=== PATIENT | male | born 1955 | race Two or more races ===

== ENCOUNTER 2017-03-12 20:07 | Emergency (ER) | payer MEDICARE ==
[~2017-03-12] VITALS: Ht 177.8 cm; Wt 63.5 kg
[2017-03-12 20:15] VITALS: BP 110/78
[2017-03-12] MEDS: Ketorolac 30mg Inj IM ONE ×2 (20:55→20:58)
[2017-03-12 22:05] VITALS: BP 115/88
[2017-03-12 23:15] VITALS: BP 105/72
[2017-03-13 01:30] VITALS: BP 120/78
--- NOTE | 2017-03-13 14:22 | Emergency Room Report ---
History of Present Illness General Chief Complaint: Pain Source: Patient Present Illness HPI 61-year-old male presents ED complaining of leg pain. Was found by EMS at grocery store parking lot. Patient states he has throbbing pain to both legs. 12/31, nonradiating. Able to ambulate. Denies any trauma. States his legs are hurting because he is homeless and is walking a lot. Denies any alcohol or drug use. Denies chest pain or shortness of breath. No other aggravating or leading factors. Denies any other associated symptoms Allergies: Coded Allergies: No Known Allergies (Unverified , 03/12/17) Patient History Past Medical History: psych hx Past Surgical History: none Pertinent Family History: none Social History: Denies: smoking, alcohol use, drug use Immunizations: UTD Reviewed Nursing Documentation: PMH: Agreed, PSxH: Agreed Nursing Documentation-PMH History Of Psychiatric Problem: Yes - Bipolar, schizophrenia Review of Systems All Other Systems: negative except mentioned in HPI Physical Exam Vital Signs Date Time Temp Pulse Resp B/P (MAP) Pulse Ox O2 Delivery O2 Flow Rate FiO2 03/12/17 20:04 98.2 69 16 111/74 97 Room Air Sp02 EP Interpretation: reviewed, normal General Appearance: no apparent distress, alert, GCS 15, non-toxic Head: normocephalic, atraumatic Eyes: bilateral eye normal inspection, bilateral eye PERRL ENT: hearing grossly normal, normal pharynx, no angioedema, normal voice Neck: full range of motion, supple/symm/no masses Respiratory: chest non-tender, lungs clear, normal breath sounds, speaking full sentences Cardiovascular #1: regular rate, rhythm, no edema Cardiovascular #2: 2+ carotid (R), 2+ carotid (L), 2+ radial (R), 2+ radial (L) , 2+ dorsalis pedis (R), 2+ dorsalis pedis (L) Gastrointestinal: normal bowel sounds, non tender, soft, non-distended, no guarding, no rebound Rectal: deferred Genitourinary: normal inspection, no CVA tenderness Musculoskeletal: back normal, gait/station normal, normal range of motion, non- tender Neurologic: alert, oriented x3, responsive, motor strength/tone normal, sensory intact, speech normal Psychiatric: judgement/insight normal, memory normal, mood/affect normal, no suicidal/homicidal ideation Reflexes: 3+ bicep (R), 3+ bicep (L), 3+ tricep (R), 3+ tricep (L), 3+ knee (R) , 3+ knee (L) Skin: normal color, no rash, warm/dry, well hydrated Lymphatic: no adenopathy Medical Decision Making Diagnostic Impression: Primary Impression: General medical exam Additional Impression: Pain ER Course Hospital Course 61-year-old male presents ED complaining of bilateral leg pain Differential-fracture, dislocation, contusion Clinical course Patient placed on stretcher. After initial history physical exam reveals a middle-age male in no acute distress. Leg exam unremarkable. There is no swelling or tenderness. Full range of motion. No bruising or crepitus. I see no reason for imaging at this time. I offered patient Toradol for pain Patient declined medication stating that he is tired and wants to sleep Patient allowed to sleep. My assessment shows no evidence of SI/HI requiring psychiatric evaluation. Patient allowed to rest in now awake alert oriented x3. ambulating without difficulty. Patient is safe for discharge Diagnosis - general medical exam, pain stable and discharged to home. Followup with PMD. Return to ED if symptoms recur or worsen Last Vital Signs Date Time Temp Pulse Resp B/P (MAP) Pulse Ox O2 Delivery O2 Flow Rate FiO2 03/13/17 01:30 98.1 88 16 120/78 99 Room Air Status: improved Disposition: HOME, SELF-CARE Condition: Improved Scripts No Active Prescriptions or Reported Meds Patient Instructions: Medical Screening Exam LA PEOPLES M.D. Mar 13, 2017 14:22
== END 2017-03-13 01:30 | disposition home or self-care (01) ==
LOC: EDBD 20:07 → EMR 20:50
DX: M79.605 Pain in left leg (principal); M79.604 Pain in right leg; F31.9 Bipolar disorder, unspecified; F20.9 Schizophrenia, unspecified
CPT/HCPCS: 96372; 99283